=== PATIENT | female | born 1985 | race Caucasian/White ===

== ENCOUNTER → 2016-03-24 | Outpatient (CLI) | payer OTHER ==
--- NOTE | 2016-03-24 10:27 | DX ---
Left Knee , 2 weightbearing views, iplus a sunrise view History: Pain post trauma. Fall on ice March 14, 2016 Findings: No fracture, effusion or malalignment is identified. There is pretibial soft tissue swellin g. Impression: Soft tissue swelling anterior to the proximal anterior tibial apophysis.
== END ==
LOC: FIMAGING 09:20
PROVIDERS: ATTEND Physician Assistant
DX: M79.89 Other specified soft tissue disorders (principal); M25.562 Pain in left knee

== ENCOUNTER → 2016-11-23 | Outpatient (CLI) | payer OTHER ==
[~2016-11-23] MED LIST: GADOBUTROL 10 ML VIAL IVP ONE
== END ==
LOC: FIMAGING 06:51
PROVIDERS: ATTEND Physician Assistant
DX: G93.9 Disorder of brain, unspecified (principal)
CPT/HCPCS: A9585

== ENCOUNTER → 2016-12-22 | Outpatient (CLI) | payer OTHER | LOC: FIMAGING 15:56 | PROVIDERS: ATTEND Internal Medicine | DX: Z12.4 Encounter for screening for malignant neoplasm of cervix (principal); D25.9 Leiomyoma of uterus, unspecified ==

== ENCOUNTER → 2017-01-26 | Outpatient (CLI) | payer OTHER ==
[~2017-01-26] MED LIST changes: -GADOBUTROL 10 ML VIAL IVP ONE; +IOPAMIDOL (ISOVUE 370) 100 ML BTL IV ONE
== END ==
LOC: FIMAGING 07:47
PROVIDERS: ATTEND Psychiatry & Neurology Neurology
DX: R93.0 Abnormal findings on diagnostic imaging of skull and head, not elsewhere classified (principal)
CPT/HCPCS: Q9967

== ENCOUNTER → 2017-02-15 | Outpatient (CLI) | payer OTHER ==
[~2017-02-15] MED LIST changes: +GADOBUTROL 10 ML VIAL IVP ONE; -IOPAMIDOL (ISOVUE 370) 100 ML BTL IV ONE
== END ==
LOC: FIMAGING 06:51
PROVIDERS: ATTEND Physician Assistant Surgical
DX: G93.89 Other specified disorders of brain (principal)
CPT/HCPCS: A9585

== ENCOUNTER → 2017-08-01 | Outpatient (CLI) | payer OTHER | LOC: FIMAGING 07:44 | PROVIDERS: ATTEND Physician Assistant | DX: R90.82 White matter disease, unspecified (principal) | CPT/HCPCS: A9585 ==

== ENCOUNTER → 2017-08-10 | Outpatient (CLI) | payer OTHER | LOC: FIMAGING 06:49 | PROVIDERS: ATTEND Physician Assistant Surgical | DX: G95.89 Other specified diseases of spinal cord (principal) ==

== ENCOUNTER → 2017-12-25 | Outpatient (CLI) | payer OTHER | LOC: FIMAGING 16:05 | PROVIDERS: ATTEND Internal Medicine | DX: D25.9 Leiomyoma of uterus, unspecified (principal) ==

== ENCOUNTER → 2018-07-30 | Outpatient (CLI) | payer OTHER | LOC: FIMAGING 06:49 ==